=== PATIENT | female | born 1960 | race Caucasian/White ===

== ENCOUNTER 2016-12-17 08:25 | Emergency (ER) | payer OTHER ==
[~2016-12-17] VITALS: Ht 175.3 cm; Wt 70.0 kg
[~2016-12-17 08:25] MED LIST: BACT800T5 PO; CEPH500C3 PO; QUET200 PO
[2016-12-17 09:05] VITALS: BP 159/85; PULSE 90; RESP 20; TEMP 98.6; O2SAT 95
[2016-12-17 09:26] VITALS: BP 147/71; PULSE 85; RESP 18; TEMP 98.4; O2SAT 94
--- NOTE | 2016-12-17 09:27 | PD ---
HPI Chief Complaint: Psychiatric Symptoms Time Seen by Provider: 09:11 Travel History International Travel<30 days: No Contact w/Intl Traveler<30days: No Traveled to known affect area: No History of Present Illness HPI 56 year-old female is brought to the emergency department under Valle act for psychiatric evaluation. . Patient appears without distress. She is unable to provide a medical history she continues to experience flight of ideas and offer a history that does not make sense. Patient reports daily alcohol consumption. Denies suicidal or homicidal ideations. Denies illicit drug use. Denies any acute pain. No chest pain or tightness. No difficulty breathing. No other symptoms to report. PFSH Past Medical History Anemia: Yes Arthritis: Yes (BACK) Bipolar Disorder: Yes Anxiety: Yes Depression: Yes Diabetes: No Diminished Hearing: No Gastrointestinal Disorders: Yes (ACID REFLUX) Glaucoma: No Hiatal Hernia: No Hypertension: No Musculoskeletal: Yes Neurologic: Yes Psychiatric: Yes Schizophrenia: Yes Seizures: Yes (RELATED TO WITHDRAWAL FROM XANAX 2007) Thyroid Disease: No ?: Not Menopausal: Yes : 3 Para: 1 : 1 Ectopic : Yes Dilation and Curettage (D&C): Yes Past Surgical History Abdominal Surgery: Yes (SPLEEN, ITP 1964) Appendectomy: Yes Cardiac Surgery: No Cholecystectomy: Yes (06/2013) Ear Surgery: No Endocrine Surgery: No Eye Surgery: No Genitourinary Surgery: No Gynecologic Surgery: Yes (D & C) Oral Surgery: No Pacemaker: No Thoracic Surgery: No Other Surgery: Yes (SPLENECTOMY 1964) Social History Alcohol Use: No Tobacco Use: Yes (CHEAP CIGARS) Substance Use: No Allergies-Medications (Allergen,Severity, Reaction): Coded Allergies: No Known Allergies (Verified Allergy, Unknown, 12/17/16) *MDRO Multi-Drug Resistant Organism (Verified Adverse Reaction, Unknown, ) MRSA wound (face) 11/12/2014 Reported Meds & Prescriptions Reported Meds & Active Scripts Active No Active Prescriptions or Reported Medications Review of Systems ROS Limitations: Psychotic Except as stated in HPI: all other systems reviewed are Neg Physical Exam Exam Limitations: Psychotic Narrative GENERAL: Well-nourished elderly female patient, in no acute distress SKIN: Focused skin assessment warm/dry. HEAD: Atraumatic. Normocephalic. EYES: Pupils equal and round. No scleral icterus. No injection or drainage. ENT: No nasal bleeding or discharge. Mucous membranes pink and moist. NECK: Trachea midline. No JVD. CARDIOVASCULAR: Regular rate and rhythm. No murmur appreciated. RESPIRATORY: No accessory muscle use. Clear to auscultation. Breath sounds equal bilaterally. GASTROINTESTINAL: Abdomen soft, non-tender, nondistended. Hepatic and splenic margins not palpable. MUSCULOSKELETAL: No obvious deformities. No clubbing. No cyanosis. No edema. NEUROLOGICAL: Awake and alert. No obvious cranial nerve deficits. Motor grossly within normal limits. Normal speech. PSYCHIATRIC: Bizarre affect Data Data Last Documented VS Vital Signs Date Time Temp Pulse Resp B/P (MAP) Pulse Ox O2 Delivery O2 Flow Rate FiO2 12/17/16 16:14 86 18 131/100 (110) 96 Room Air 12/17/16 09:26 98.4 Orders Orders Complete Blood Count With Diff (12/17/16 09:11) Basic Metabolic Panel (Bmp) (12/17/16 09:11) Psych Screen (12/17/16 09:11) Drug Screen, Random Urine (12/17/16 09:11) Alcohol (Ethanol) (12/17/16 09:11) Urinalysis - C+S If Indicated (12/17/16 09:11) Haloperidol Inj (Haldol Inj) (12/17/16 11:15) Lorazepam Inj (Ativan Inj) (12/17/16 11:15) Labs Laboratory Tests Test 12/17/16 09:35 12/17/16 10:46 White Blood Count 9.5 TH/MM3 Red Blood Count 3.88 MIL/MM3 Hemoglobin 13.3 GM/DL Hematocrit 39.1 % Mean Corpuscular Volume 100.7 FL Mean Corpuscular Hemoglobin 34.4 PG Mean Corpuscular Hemoglobin Concent 34.1 % Red Cell Distribution Width 16.0 % Platelet Count 421 TH/MM3 Mean Platelet Volume 7.5 FL Neutrophils (%) (Auto) 54.5 % Lymphocytes (%) (Auto) 32.2 % Monocytes (%) (Auto) 11.8 % Eosinophils (%) (Auto) 1.0 % Basophils (%) (Auto) 0.5 % Neutrophils # (Auto) 5.2 TH/MM3 Lymphocytes # (Auto) 3.1 TH/MM3 Monocytes # (Auto) 1.1 TH/MM3 Eosinophils # (Auto) 0.1 TH/MM3 Basophils # (Auto) 0.0 TH/MM3 CBC Comment DIFF FINAL Differential Comment Urine Color LIGHT-YELLOW Urine Turbidity CLEAR Urine pH 7.5 Urine Specific Parnell 1.004 Urine Protein NEG mg/dL Urine Glucose (UA) NEG mg/dL Urine Ketones NEG mg/dL Urine Occult Blood NEG Urine Nitrite NEG Urine Bilirubin NEG Urine Urobilinogen LESS THAN 2.0 MG/DL Urine Leukocyte Esterase NEG Urine RBC LESS THAN 1 /hpf Urine WBC 1 /hpf Microscopic Urinalysis Comment CULT NOT INDICATED Urine Opiates Screen NEG Urine Barbiturates Screen NEG Urine Amphetamines Screen NEG Urine Benzodiazepines Screen NEG Urine Cocaine Screen NEG Urine Cannabinoids Screen NEG Blood Urea Nitrogen 6 MG/DL Creatinine 0.49 MG/DL Random Glucose 107 MG/DL Calcium Level 9.7 MG/DL Sodium Level 139 MEQ/L Potassium Level 3.6 MEQ/L Chloride Level 105 MEQ/L Carbon Dioxide Level 24.9 MEQ/L Anion Gap 9 MEQ/L Estimat Glomerular Filtration Rate 130 ML/MIN Ethyl Alcohol Level LESS THAN 3 MG/DL MDM Medical Decision Making Medical Screen Exam Complete: Yes Emergency Medical Condition: Yes Medical Record Reviewed: Yes Differential Diagnosis Acute psychosis versus UTI versus mood disorder versus personality disorder versus adjustment reaction disorder Narrative Course 56 year-old female presents to the emergency department for evaluation a Valle act. Patient appears without distress however her affect is bizarre and she is unable to provide an accurate history. Lab work is without acute concern. Patient will be medically cleared to undergo psychiatric screening for further evaluation and disposition. Mental health screening discussed with the patient. Psychiatric screen ordered. Diagnosis Primary Impression: Acute psychosis Scripts No Active Prescriptions or Reported Meds Condition: Venus Taylor Dec 17, 2016 09:27
[2016-12-17 10:05] LABS: BLOOD, URINE NEG (NEG); GLUCOSE,URINE NEG (NEG); KETONE, URINE NEG (NEG); NITRITE,URINE NEG (NEG); PH, URINE 7.5 (5.0-8.5); URINE COLOR LIGHT-YELLOW (YELLW/STRAW)
[2016-12-17 10:08] LABS: COMMENT (UR) CULT NOT INDICATED; CULTURE IF INDICATED CULT NOT INDICATED
[2016-12-17 10:11] LABS: AUTOMATED NEUTROPHIL # 5.2 TH/MM3 (1.8-7.7); BASOPHIL % 0.5 % (0.0-2.0); EOSINOPHIL # 0.1 TH/MM3 (0-0.4); HEMATOCRIT 39.1 % (35.0-46.0); HEMO FLAGS DIFF FINAL; LYMPH % 32.2 % (9.0-44.0); LYMPHOCYTE # 3.1 TH/MM3 (1.0-4.8); MEAN CELL VOLUME 100.7 FL (80.0-100.0); MEAN CORPUSCULAR HEMOGLOBIN 34.4 PG (27.0-34.0); MEAN CORPUSCULAR HGB CONC 34.1 % (32.0-36.0); MONO % 11.8 % (0.0-8.0); NEUT % 54.5 % (16.0-70.0); PLATELET COUNT 421 TH/MM3 (150-450); RED BLOOD COUNT 3.88 MIL/MM3 (4.00-5.30); WHITE BLOOD COUNT 9.5 TH/MM3 (4.0-11.0)
[2016-12-17 11:13] LABS: ANION GAP 9 MEQ/L (5-15); BICARBONATE 24.9 MEQ/L (21.0-32.0); BLOOD UREA NITROGEN 6 MG/DL (7-18); CHLORIDE 105 MEQ/L (98-107); GLOMERULAR FILTRATION RATE 130 ML/MIN (>89); POTASSIUM 3.6 MEQ/L (3.5-5.1); SODIUM (NA) 139 MEQ/L (136-145)
[2016-12-17] MEDS ORDERED: LORazepam 2 MG/ML VIAL IM ONE (11:15)
[2016-12-17] MEDS ORDERED: HALOPERIDOL LACTATE 5 MG/ML AMP IM ONE (11:15)
[2016-12-17 11:17] LABS: ALCOHOL LESS THAN 3 MG/DL (0-5)
[2016-12-17 16:14] VITALS: BP 131/100; PULSE 86; RESP 18; O2SAT 96
[2016-12-17] MEDS ORDERED: NICOTINE 21 MG/24 HR PATCH T-DERMAL ONE (18:15)
== END 2016-12-17 22:41 ==
LOC: NEPD 08:25 → NEPJ 22:41
DX: F23 Brief psychotic disorder (principal); F31.9 Bipolar disorder, unspecified; F20.9 Schizophrenia, unspecified
CPT/HCPCS: 80048; 80307; 81001; 85025; 96372; 99285; J1630; J2060